=== PATIENT | male | born 1985 | race American Indian/Alaskan Native ===

== ENCOUNTER 2016-10-16 13:03 | Emergency (ER) | payer SELFPAY ==
[2016-10-16 14:12] VITALS: BP 131/92
== END 2016-10-16 17:58 | disposition left against medical advice (07) ==
LOC: ED 13:03
DX: M54.5 Low back pain (principal); Z53.21 Procedure and treatment not carried out due to patient leaving prior to being seen by health care provider; V89.2XXA Person injured in unspecified motor-vehicle accident, traffic, initial encounter; Y93.9 Activity, unspecified; Y92.410 Unspecified street and highway as the place of occurrence of the external cause; Y99.9 Unspecified external cause status